=== PATIENT | female | born 1940 | race Caucasian/White ===

== ENCOUNTER 2022-05-05 14:14 | Inpatient (IN) | payer MEDICARE, MEDICAID ==
[2022-05-05 15:13] LABS: #Lymphocytes 1.1 thou/uL (1.20-3.40); #Monocytes 1.3 thou/uL (0.11-0.59); #Neutrophils 10.6 thou/uL (1.40-6.50); %Basophils 0.1 % (0.0-1.0); %Eosinophils 0.1 % (0.0-10.0); %Lymphocytes 8.4 % (21.0-51.0); %Monocytes 9.8 % (0.0-10.0); %Neutrophils 81.7 % (42.0-75.0); Hemoglobin 15.5 g/dL (12.0-16.0); Mean Corpuscular HGB CONC 29.7 g/dL (32.0-36.0); Mean Corpuscular Hemoglobin 28.7 pg (27.0-31.0); Mean Corpuscular Volume 96.4 fl (78.0-98.0); Platelet Count 232 10x3/uL (130-400); RBC Distribution Width 16.9 % (11.5-14.5); White Blood Cell (WBC) Count 12.9 10x3/uL (4.8-10.8)
[2022-05-05] MEDS ORDERED: Magnesium 2 GM/50 ML BAG (IN WATER) ONE (15:14)
[2022-05-05] MEDS ORDERED: Diltiazem 125 MG/25 ML ONE (15:14)
[2022-05-05 15:34] LABS: Hypochromia SLIGHT = 6-15 cells (100X) (0-5/hpf); MDiff Complete? YES; Platelet Morphology Comment Appears Adequate
[2022-05-05 15:35] LABS: SARS-CoV-2 NAA Rapid Test DETECTED (NotDetected)
[2022-05-05 15:36] LABS: ALT (SGPT) 12 U/L (8-55); AST (SGOT) 26 U/L (5-34); Albumin 3.4 g/dL (3.4-4.8); Alkaline Phosphatase 126 U/L (40-110); Anion Gap 17 mmol/L (10-20); BUN (Urea Nitrogen) 24 mg/dL (9.8-20.1); Bilirubin, Total 2.5 mg/dL (0.2-1.2); CK (CPK) 60 U/L (29-168); Calc. Creatinine Clearance 0 mL/min (70-130); Calcium 8.7 mg/dL (7.8-10.44); Carbon Dioxide 19 mmol/L (23-31); Chloride 110 mmol/L (98-107); Estimated GFR 51; Globulin 2.9 g/dL (2.4-3.5); Glucose 119 mg/dL (83-110); Lipase 39 U/L (8-78); Potassium 4.9 mmol/L (3.5-5.1); Protein, Total 6.3 g/dL (5.8-8.1); Sodium 141 mmol/L (136-145)
[2022-05-05] MEDS ORDERED: Senokot S 8.6-50 MG TAB PO PRN (17:06)
[2022-05-05] MEDS ORDERED: Acetaminophen 325 MG TAB PO PRN (17:06)
[2022-05-05] MEDS ORDERED: Ondansetron ODT 4 MG TAB PO PRN (17:06)
[2022-05-05 18:25] LABS: Lactic Acid 2.6 mmol/L (0.5-2.2)
[2022-05-05] MEDS: Metoprolol Tartrate 5 MG/5 ML VIAL IVP SCH (18:28)
[2022-05-06] MEDS: Metoprolol Tartrate 5 MG/5 ML VIAL IVP SCH ×2 (01:29→09:52)
[2022-05-06 03:34] VITALS: BMI 22.3
[2022-05-06 06:35] LABS: #Eosinphils 0.1 thou/uL (0.0-0.7); #Lymphocytes 1.1 thou/uL (1.20-3.40); #Monocytes 0.9 thou/uL (0.11-0.59); #Neutrophils 8.2 thou/uL (1.40-6.50); %Basophils 0.4 % (0.0-1.0); %Eosinophils 0.5 % (0.0-10.0); %Monocytes 8.7 % (0.0-10.0); %Neutrophils 79.4 % (42.0-75.0); Hemoglobin 15.7 g/dL (12.0-16.0); Mean Corpuscular HGB CONC 32.9 g/dL (32.0-36.0); Mean Corpuscular Hemoglobin 31.4 pg (27.0-31.0); Mean Corpuscular Volume 95.5 fl (78.0-98.0); Mean Platelet Volume 7.9 fL (7.4-10.4); Platelet Count 188 10x3/uL (130-400); RBC Distribution Width 16.6 % (11.5-14.5); Red Blood Cell (RBC) Count 4.99 mill/uL (4.20-5.40); White Blood Cell (WBC) Count 10.3 10x3/uL (4.8-10.8)
[2022-05-06 07:00] LABS: ALT (SGPT) 12 U/L (8-55); AST (SGOT) 27 U/L (5-34); Albumin 3.4 g/dL (3.4-4.8); Alkaline Phosphatase 118 U/L (40-110); Anion Gap 16 mmol/L (10-20); BUN (Urea Nitrogen) 22 mg/dL (9.8-20.1); Calc. Creatinine Clearance 39 mL/min (70-130); Calcium 9.1 mg/dL (7.8-10.44); Carbon Dioxide 18 mmol/L (23-31); Chloride 112 mmol/L (98-107); Estimated GFR 55; Globulin 3.2 g/dL (2.4-3.5); Glucose 81 mg/dL (83-110); Potassium 4.5 mmol/L (3.5-5.1); Protein, Total 6.6 g/dL (5.8-8.1); Sodium 141 mmol/L (136-145)
[2022-05-06] MEDS ORDERED: Diltiazem 125 MG in Sodium Chloride 0.9% 100 ML IVPB SCH (09:45)
[2022-05-06] MEDS ORDERED: Diltiazem 125 MG/25 ML ONE (09:50)
[2022-05-06] MEDS ORDERED: Metoprolol Tartrate 5 MG/5 ML VIAL ONE (09:50)
[2022-05-07] MEDS ORDERED: Aspirin 81 mg Enteric Coated Tablet PO SCH (17:30)
[2022-05-08] MEDS: Aspirin 81 mg Enteric Coated Tablet PO SCH (10:10)
[2022-05-09] MEDS: Aspirin 81 mg Enteric Coated Tablet PO SCH (10:12)
[2022-05-09] MEDS ORDERED: Amlodipine 5 MG TAB PO SCH (14:10)
[2022-05-09] MEDS ORDERED: Lisinopril 5 MG TAB PO SCH (14:15)
[2022-05-10] MEDS: Lisinopril 5 MG TAB PO SCH (09:39)
[2022-05-10] MEDS: Aspirin 81 mg Enteric Coated Tablet PO SCH (09:39)
[2022-05-11] MEDS: Lisinopril 5 MG TAB PO SCH (08:50)
[2022-05-11] MEDS: Aspirin 81 mg Enteric Coated Tablet PO SCH (08:50)
[2022-05-11 10:55] VITALS: BP 166/79; TEMP 97.7
== END 2022-05-11 13:19 | disposition hospice, home (50) | DRG 308 ==
LOC: ERS 14:14 → ERHOLD 17:02 → 2NO 05-06 14:07
PROVIDERS: ADMIT Student in an Organized Health Care Education/Training Program; ATTEND Internal Medicine
PROC: 8E0ZXY6 Isolation (ICD-10-PCS; principal; 2022-05-05)
DX: I48.0 Paroxysmal atrial fibrillation (principal); U07.1 COVID-19; C64.2 Malignant neoplasm of left kidney, except renal pelvis; Z66 Do not resuscitate; I10 Essential (primary) hypertension; Z51.5 Encounter for palliative care; R62.7 Adult failure to thrive; W18.30XA Fall on same level, unspecified, initial encounter; Z68.22 Body mass index [BMI] 22.0-22.9, adult
CPT/HCPCS: 36415; 70450; 71045; 72125; 72170; 80053; 82550; 83605; 83690; 83880; 84484; 85025; 87040; 93005; 93306; 96365; 96375; 97139; J1650; J3475